=== PATIENT | female | born 1990 | race Caucasian/White ===

== ENCOUNTER 2016-11-08 14:55 | Emergency (ER) | payer SELFPAY ==
--- NOTE | 2016-11-16 11:04 | ER ---
ADMIT: 11/08/2016 RM/LOC: [facility] MR#: [id number] [address] [facility] [address] [place] [id number] [place] [address] Emergency Room Report SEX: F AGE: 26 : 1990 DATE: 11/08/2016 CHIEF COMPLAINT: No care. HISTORY OF PRESENT ILLNESS: This is a 26-year-old female, who presents with law enforcement today for evaluation prior to going to skilled nursing. Primarily concerned that she is roughly 30 weeks and has had no care up to this point. It sounds like she is being jailed for domestic disturbance, unknown length of incarceration. States that she has had an ultrasound done at [facility] here in [place]. Thinks she has approximately 10 weeks before she is due. She has not been using any vitamins. She has not seen an PRINT TRA[employer]NAGER. She states she is currently using meth, she is unsure of her last usage, but is concerned that if she stops using this meth, she is going to lose the baby. She has no complaints today. No fevers, chills, nausea, vomiting, abdominal pain, bleeding, or spotting. Denies any trouble urinating. Otherwise feels well. PAST MEDICAL HISTORY: Has no past medical history. COURSE IN THE EMERGENCY ROOM: The patient was seen and examined. GENERAL: She is afebrile and nontoxic, in no acute distress. ABDOMEN: Significant for gravid uterus. Fundal height estimated 22 to 24 cm. There is no tenderness or guarding. CHEST: Clear. HEART: Regular. Physical exam otherwise unremarkable. heart tones were found using hand held Doppler, found to be regular rate 156. IMPRESSION: 1. Drug dependency, methamphetamine. 2. Possible , unknown trimester, possibly third per patient's report. DISPOSITION: Patient is discharged under the care of law enforcement to be jailed. I did recommend she start a vitamin. She should follow up with PR[employer] TRAFFIC MANAGER to establish care about doing drugs. She was discharged into the custody of law enforcement. Questions sought and answered to best of my ability and the patient's satisfaction. Discharged in stable condition. CIARA Krishnamurthy / Dylan Lima MD / jeri JOB #: [id number] CC: Dylan Lima MD, Attending Physician Canelo Hernandez MD, Family Physician
== END 2016-11-08 15:30 | disposition home or self-care (01) ==
LOC: ER 14:55
DX: O99.320 Drug use complicating pregnancy, unspecified trimester (principal); F15.20 Other stimulant dependence, uncomplicated; Z88.5 Allergy status to narcotic agent